=== PATIENT | male | born 1955 | race Two or more races ===

== ENCOUNTER → 2025-01-27 | Outpatient (CLI) | payer MEDICARE, MEDICAID, SELFPAY ==
--- NOTE | 2025-01-27 | XR_ITS ---
Examination: Lumbar spine 3 views Technique one AP lateral coned lateral lower lumbar spine 3 views Date and time: January 27, 2025 1150 hours INDICATIONS: Low back pain beginning 2 weeks ago. FINDINGS: Adequate alignment lumbar vertebral bodies No lumbar fracture Mild diffuse lumbar disc narrowing Moderate lumbar spondylosis IMPRESSION: No lumbar fracture Mild diffuse lumbar disc narrowing Moderate lumbar spondylosis
--- NOTE | 2025-01-27 | XR_ITS ---
Examination: Sacrum and coccyx 3 views TECHNIQUE: AP, inclined AP lateral sigmoid coccyx 3 views Date and time: January 27, 2025 1153 hours INDICATIONS: Left sacral pain beginning 2 weeks ago. FINDINGS: Mild bilateral sacroiliitis Symmetrical sacral wings No sacral or coccygeal fracture Moderate osteopenia IMPRESSION: Mild bilateral sacroiliitis
--- NOTE | 2025-01-27 | XR_ITS ---
Examination:Left hip AP, lateral, AP pelvis 3 views Technique: Hip AP lateral, AP pelvis, 3 views Exam date and time:January 27, 2025 1140 hours INDICATIONS: Left hip pain beginning 2 weeks ago. FINDINGS: Moderate osteopenia. No left hip fracture or dislocation Moderate narrowing left hip joint Mild to moderate narrowing right hip joint Bones of the pelvis intact IMPRESSION: Moderate narrowing left hip joint.
== END | disposition home or self-care (01) ==
DX: M48.061 Spinal stenosis, lumbar region without neurogenic claudication (principal); M47.816 Spondylosis without myelopathy or radiculopathy, lumbar region; M46.1 Sacroiliitis, not elsewhere classified; M25.852 Other specified joint disorders, left hip
CPT/HCPCS: 72100; 72220; 73502

== ENCOUNTER → 2025-03-13 | Outpatient (CLI) | payer MEDICARE, MEDICAID, SELFPAY ==
--- NOTE | 2025-03-13 15:00 | XR_ITS ---
Examination: MRI lumbar spine without contrast Date and time of exam: March 13, 2025 1549 hours INDICATIONS: Low back pain radiating down the legs 2 months Technique: Multiple MRI axial and sagittal sections lumbar spine. Sagittal T2-weighted images, TR 3500, TE 118 T1 weighted transverse sections, TR 688 T8.5, T2-weighted sagittal sections T1 weighted sagittal sections TR 621, TE 30 T2 axial sections, TR 4, 190, TE 84. Findings: Adequate alignment lumbar vertebral bodies Heterogeneous signal in the lumbar vertebral bodies Diffuse lumbar disc desiccation No lumbar fracture Mild disc narrowing L4-L5 No spondylolisthesis L5-S1 2 mm central lumbar disc bulge L4-L5 moderate to severe overall spinal stenosis, axial image 4, 5 mm central lumbar disc bulge, facet arthropathy and thickening of ligamenta flava circumferentially narrowing the thecal sac L3-L4 no disc protrusion L2-L3 no disc protrusion L1-L2 no disc protrusion IMPRESSION: L5-S1 2 mm central lumbar disc bulge L4-L5 moderate to severe overall spinal stenosis, including 5 mm central lumbar disc bulge indenting the ventral margin thecal sac, facet arthropathy and thickening of the ligamentum flavum circumferentially narrowing the thecal sac
== END | disposition home or self-care (01) ==
PROVIDERS: PCP Nurse Practitioner Family; Referring Provider Nurse Practitioner Family; Visit Provider Nurse Practitioner Family
DX: M51.370 Other intervertebral disc degeneration, lumbosacral region with discogenic back pain only (principal); M51.360 Other intervertebral disc degeneration, lumbar region with discogenic back pain only; M47.816 Spondylosis without myelopathy or radiculopathy, lumbar region
CPT/HCPCS: 72148

== ENCOUNTER → 2025-04-14 | Outpatient (CLI) | payer MEDICARE, MEDICAID, SELFPAY ==
--- NOTE | 2025-04-14 12:30 | XR_ITS ---
Examination: Venous duplex lower extremity sonogram, bilateral. Date and time of exam: April 14, 2025, 1210 hours INDICATIONS: Right lower leg swelling years Technique: Multiple sonographic images of the deep venous system have been obtained. B-mode/2-D grayscale imaging of vascular structures and Doppler spectral analysis (waveforms) and color performed Both legs are examined. Findings: Deep venous systems do not demonstrate abnormal echogenicity. All visualized deep veins exhibit compressibility. All visualized deep veins exhibit augmentation. Impression: Negative for deep vein thrombosis
== END | disposition home or self-care (01) ==
PROVIDERS: PCP Family Medicine; Referring Provider Family Medicine; Visit Provider Family Medicine
DX: I87.2 Venous insufficiency (chronic) (peripheral) (principal)
CPT/HCPCS: 93970